=== PATIENT | female | born 1950 | race Caucasian/White ===

== ENCOUNTER 2022-10-22 15:10 | Outpatient (REF) | payer OTHER, SELFPAY ==
--- NOTE | ~2022-10-22 | XR_ITS ---
EXAMINATION: XR SHOULDER, LEFT CLINICAL INFORMATION: M25.512 left shoulder pain COMPARISON: None TECHNIQUE: Left shoulder is imaged in 3 views. FINDINGS: No fracture, dislocation, destructive process. No visible rotator cuff calcifications. There is borderline spurring at the inferior glenohumeral joint. No joint narrowing or erosive change. There is mild spurring from the superior lateral acromium likely at origin deltoid. The acromioclavicular alignment is normal. There are mild degenerative changes acromioclavicular joint. XR/XR shoulder LT min 2V IMPRESSION: 1. Mild degenerative changes acromioclavicular joint. 2. Mild spurring superior lateral acromium likely at origin deltoid. 3. No visible rotator cuff calcifications.
== END 2022-10-22 15:11 | disposition home or self-care (01) ==
LOC: HO.HMGCX 15:10
PROVIDERS: PCP Internal Medicine Hospice and Palliative Medicine; Visit Provider Student in an Organized Health Care Education/Training Program
DX: M25.512 Pain in left shoulder (principal)
CPT/HCPCS: 73030